=== PATIENT | female | born 1995 | race Caucasian/White ===

== ENCOUNTER 2016-09-28 02:09 | Emergency (ER) | payer OTHER ==
[~2016-09-28] VITALS: Ht 152.4 cm; Wt 52.2 kg
--- NOTE | ~2016-09-28 | EKG ---
[address] [address] [address] [place] [address] ELECTROCARDIOGRAM REPORT Name: NEO JORDAN [id number] Admission: 09/28/16 Attend Phys: Discharge: 09/28/16 Date of : [birth year] Report #: [id number] THIS REPORT FOR: //name// [facility] ED Test Date: 2016-09-28 Test Time: 02:24:22 Pat Name: NEO JORDAN Department: Room: Gender: F Pill Coater: ALEYDA : 1995 Requested By: Edgar Ghosh Order Number: [id number] MD: Trever Najera Measurements Intervals Morgan Rate: 90 P: 20 NH: 185 QRS: 42 QRSD: 106 T: 55 QT: 365 QTc: 447 Interpretive Statements Sinus rhythm RSR' in V1 or V2, probably normal variant No previous ECG available for comparison Electronically Signed On 09-28-2016 16:01:31 CDT by Trever Najera [email or web address] <ELECTRONICALLY SIGNED> By: Trever Najera MD, [facility] 09/28/16 1601 0224 0224 Trever Najera MD, FACC /EPI
[2016-09-28 02:27] LABS: ABSOLUTE NEUTROPHILS 6.5 thou/uL (1.4-8.2); BASOPHILS 0.4 % (0.0-2.0); EOSINOPHILS 0.4 % (0.0-3.0); HEMATOCRIT 37.8 % (37.0-47.0); HEMOGLOBIN 13.4 gm/dL (12.0-15.0); LYMPHOCYTES 33.5 % (24.0-44.0); MCH 30.5 pg (26.0-34.0); MCHC 35.3 g/dL (28.0-37.0); MCV 86.2 fL (80.0-100.0); MONOCYTES 8.5 % (1.0-8.0); PLATELET COUNT 292 thou/uL (150-400); POLYS 57.2 % (36.0-66.0); RBC 4.39 mil/uL (4.20-5.00); RDW 12.9 % (10.5-14.5); WBC 11.4 thou/uL (4.0-11.0)
[2016-09-28 02:32] LABS: MANUAL DIFF NO
[2016-09-28 02:34] LABS: URINE BILIRUBIN NEGATIVE (Negative); URINE BLOOD NEGATIVE (Negative); URINE COLOR YELLOW; URINE GLUCOSE-RANDOM* NEGATIVE (Negative); URINE KETONES NEGATIVE (Negative); URINE LEUKOCYTES-REFLEX TRACE (Negative); URINE PROTEIN (DIPSTICK) NEGATIVE (Negative); URINE SPECIFIC GRAVITY <= 1.005 (1.003-1.035); URINE UROBILINOGEN 0.2 E.U./dl (0.2-1.0)
[2016-09-28 02:48] LABS: ALBUMIN 4.8 g/dL (3.4-5.0); AMP/METHAMP Negative (Negative); BARBITURATES Negative (Negative); BENZODIAZEPINES POSITIVE (Negative); CALCIUM 9.6 mg/dL (8.5-10.1); COCAINE Negative (Negative); CREATININE 0.8 mg/dL (0.6-1.0); DIRECT BILIRUBIN 0.2 mg/dL (<0.1-0.3); METHADONE Negative (Negative); OPIATES Negative (Negative); PCP Negative (Negative); THC Negative (Negative); TOTAL PROTEIN 8.1 g/dL (6.4-8.2)
[2016-09-28 02:58] LABS: POTASSIUM 2.9 mmol/L (3.5-5.1)
[2016-09-28] MEDS ORDERED: VALIUM2 MG PO (05:18)
[2016-09-28 05:19] VITALS: BP 96/60
== END 2016-09-28 05:21 ==
LOC: EDBD 02:09 → ER 02:09
PROVIDERS: Emergency Medicine
DX: F10.121 Alcohol abuse with intoxication delirium (principal); Y90.6 Blood alcohol level of 120-199 mg/100 ml